=== PATIENT | female | born 1985 | race Caucasian/White ===

== ENCOUNTER → 2016-11-22 | Day surgery (SDC) | payer OTHER ==
[~2016-11-22] MED LIST: ACETAMINOPHEN 1000 MG/100 ML VIAL IV ONE; BUPIVACAINE/EPINEPHRINE 0.5% PF 30 ML VIAL ONE; FIORTAB4 PO; KETOROLAC TROMETHAMINE 30 MG/ML (IVP) VIAL IV PUSH ONE; LACTATED RINGER'S 1,000 ML BAG IV ONE; LACTATED RINGER'S 1000 ML INJ 1,000 ML ONE; MEPERIDINE HCL 50 MG/ML VIAL ONE; MIDAZOLAM HCL 2 MG/2 ML VIAL ONE; ONDANSETRON HCL 4 MG/2 ML VIAL IV PUSH ONE; ONDANSETRON HCL 4 MG/2 ML VIAL ONE; OXYC-360 PO; PREN0.01 PO; PROPOFOL 200 MG/20 ML AMP IV ONE; ceFAZolin INJ 1,000 MG VIAL ONE; metroNIDAZOLE 500 MG INJ 100 ML IV ONE
--- NOTE | 2016-11-22 16:05 | TN ---
cc: ADAMA JALLOH M.D. DATE OF SURGERY: 11/22/2016. PREOPERATIVE DIAGNOSIS: Cholelithiasis, cholecystitis POSTOPERATIVE DIAGNOSIS: Cholelithiasis, cholecystitis. OPERATIVE PROCEDURE PERFORMED: Laparoscopic cholecystectomy. ANESTHESIA: General. SURGEON: Adama Jalloh MD. BEND UP: Nancy Guzman, advanced registered nurse practitioner. The YARN WINDER was present from beginning to the end of the case assisting in all portions of the procedure. It was necessary to have this individual in the room to assist in the above surgical procedure. The surgical procedure was assisted by the YARN WINDER. The YARN WINDER presence was necessary throughout the case for appropriate retraction, dissection, visualization, and resection of the important anatomical structures during the surgical procedure. The YARN WINDER was assisting throughout the entirety of the operation. The skill set of the YARN WINDER is medically and surgically necessary to safely complete the surgical procedure. During the surgical case the operating room surgical rn was working instrument table and passing instruments to the attending surgeon and YARN WINDER The YARN WINDER was directly assisting the operating surgeon and involved in the technical aspects of the surgical case. INDICATIONS FOR THE PROCEDURE: This is a pleasant female who was having the typical symptoms of biliary colic. Plans were made for the above. DESCRIPTION OF THE PROCEDURE IN DETAIL: The patient was taken to the operating room and placed in the supine position. After anesthesia, her abdomen was prepped with Hibiclens because she has an IODINE ALLERGY. We made an incision below the umbilicus after a time-out and she was given antibiotics. A Veress needle was inserted. The saline load test was performed. The abdomen was insufflated to 15 mmHg. A 10 mm trocar was introduced and the cameras were introduced. Three other working ports were placed: A 5 mm below the xiphoid, a 5 mm in-between the two previously placed ports in the midline. She had a portion of the omentum that was very adherent to the anterior abdominal wall. It looked like she had some necrosis of the omentum and this was resected and passed off the field. This allowed visualization of the gallbladder which had some mild inflammatory response around it. We were able to grasp the gallbladder superiorly and then laterally and identifying the cystic duct and cystic artery, both of which were doubly ligated and transected. The gallbladder was then teased off the gallbladder bed and it was somewhat intrahepatic and once the gallbladder was freed completely, we placed it in an EndoCatch and pulled it out the umbilical incision and this was passed off the field. We then checked our dissection site. There was excellent hemostasis without biliary leakage. We irrigated with 500 cc of saline. The liver was smooth. The peritoneal surfaces were smooth. She had some mild adhesive bands at the dome of the liver and these were not violated. They appeared very thick like maybe possibly previous trauma. Otherwise the liver was completely normal. The ascending colon was normal. The appendix looked normal. We then removed the irrigating solution and the trocars and the fascial layer at the umbilicus was closed with a #0 Vicryl and the skin was closed with a 4-0 Vicryl. Steri-Strips were applied. Sterile bandage applied. The patient tolerated the procedure well and had no immediate postoperative complications. MD FAREED Richter/FLYNN /3:02 PM /3:59 PM [email or web address]
== END | disposition home or self-care (01) ==
LOC: ESDC 11:15
PROVIDERS: ATTEND Surgery
DX: K80.10 Calculus of gallbladder with chronic cholecystitis without obstruction (principal)
CPT/HCPCS: 00790; 47562; 88304; 88305; J0131; J0690; J1885; J2175; J2250; J2405; J3010; J7120